=== PATIENT | female | born 1960 | race Caucasian/White ===

== ENCOUNTER 2018-03-12 05:37 | Inpatient (IN) | payer BC ==
--- NOTE | 2018-03-12 05:57 | ER Document Report ---
ED Medical Screen (RME) - General Chief Complaint: Shortness Of Breath Stated Complaint: DIFFICULTY BREATHING Time Seen by Provider: 03/12/18 05:48 Notes: 57-year-old female with medical history including esophageal cancer status post esophagectomy comes emergency department for chief complaint of shortness of breath. She states she was sleeping on her stomach, she vomited, and then she felt very short of breath and she was choking. She came to the emergency department immediately after. No history of COPD, CHF, denies chest pain, denies fever, denies abdominal pain, denies cardiac history. Not on chemotherapy, completed in May. TRAVEL OUTSIDE OF THE [place] IN LAST 30 DAYS: No - Related Data Allergies/Adverse Reactions: No Known Allergies Allergy (Unverified 03/12/18 05:41) Physical Exam - Respiratory Respiratory status: No respiratory distress - Speaking in full sentences, no tachypnea or labored breathing Breath sounds: No: Rales, Rhonchi, Stridor, Wheezing Course - Re-evaluation Re-evalutation: Patient tachycardic and hypoxic, episode of vomiting questionable for aspiration , however she is in no distress, oxygen is 94% on 2 L, she is alert and talkative. Workup pending.
[2018-03-12] MEDS ORDERED: IPRATROPIUM/ALBUTEROL 0.5-2.5 MG/3 ML AMPUL NEB ONE (06:27)
--- NOTE | 2018-03-12 06:32 | ER Document Report ---
ED Respiratory Problem - General Chief Complaint: Shortness Of Breath Stated Complaint: DIFFICULTY BREATHING Time Seen by Provider: 03/12/18 05:48 Notes: 57-year-old female patient emergency department chief complaint of shortness of breath. Patient is visiting from out of town. Status post esophageal cancer with surgery. Surgery was in July. Not on chemo. Not on radiation. Reportedly most of the cancerous area was removed. Here visiting her son who is a marine. Woke up this morning coughing. Possible aspiration. Has had pneumonia in the past. Had multiple chest tubes status post surgery and 1 of the chest tube sites developed abscess she was on antibiotics. Developed a fungal infection as well and has completed antifungal medications. Has a PowerPort in the right chest. Denies any chest pain at this time. Does have some mild shortness of breath at this time. Feels cold and clammy this morning. TRAVEL OUTSIDE OF THE [place] IN LAST 30 DAYS: No - HPI Patient complains to provider of: Short of breath Onset: This morning Duration: Better Initiating Event: Aspiration/Choking Severity: Moderate Context: Malignancy, Recent long distance trvl, Recent surgery Short of Breath: Moderate - Related Data Allergies/Adverse Reactions: No Known Allergies Allergy (Unverified 03/12/18 05:41) Past Medical History - General Information source: Patient - Social History Smoking Status: Smoker,Current Status Unk Frequency of alcohol use: None Drug Abuse: None Lives with: Spouse/Significant other Family History: Reviewed & Not Pertinent - Medical History Notes: Esophageal cancer Review of Systems - Review of Systems Notes: Constitutional: denies: Chills, Diaphoresis, Fever, Malaise, Weakness EENT: denies: Eye discharge, Blurred vision, Tearing, Double vision, Nose congestion, Nose discharge, Throat swelling, Mouth pain Cardiovascular: Complaining of shortness of breath, tachycardia, denies any chest pain Respiratory: Shortness of breath, cough, possible aspiration pneumonia Gastrointestinal: denies: Abdominal pain, Diarrhea,. Is complaining of nausea and vomiting Genitourinary: denies: Burning, Dysuria, Discharge, Frequency, Flank pain, Hematuria Musculoskeletal: denies: Joint pain, Joint swelling, Muscle pain, Muscle stiffness, back pain Hematologic/Lymphatic: denies: Anemia, Easy bleeding, Easy bruising, Blood clots. Does have a history of esophageal cancer status post esophagectomy Neurological/Psychological: denies: Confusion, Dementia, Depression, Loss of consciousness Skin: No lesions, no masses, no skin breakdown, no abscesses Physical Exam - Vital signs Vitals: Temp Pulse Resp BP Pulse Ox 97.8 F 114 H 16 115/67 87 L 03/12/18 05:42 03/12/18 05:42 03/12/18 05:42 03/12/18 05:42 03/12/18 05:42 Interpretation: Tachycardic - General General appearance: Appears well, Alert - HEENT Head: Normocephalic, Atraumatic Eyes: Normal Pupils: PERRL - Respiratory Respiratory status: Tachypnea Chest status: Nontender Breath sounds: Other - Coarse breath sounds bilaterally left greater than the right Chest palpation: Normal - Cardiovascular Rhythm: Tachycardia Heart sounds: Normal auscultation Murmur: No - Abdominal Inspection: Normal Distension: No distension Bowel sounds: Normal Tenderness: Nontender Organomegaly: No organomegaly - Back Back: Normal, Nontender - Extremities General upper extremity: Normal inspection, Nontender, Normal color, Normal ROM , Normal temperature General lower extremity: Normal inspection, Nontender, Normal color, Normal ROM , Normal temperature, Normal weight bearing. No: Sita's sign - Neurological Neuro grossly intact: Yes Cognition: Normal Orientation: AAOx4 Chace Coma Scale Eye Opening: Spontaneous [place] Coma Scale Verbal: Oriented Chace Coma Scale Motor: Obeys Commands [place] Coma Scale Total: 15 Speech: Normal Motor strength normal: LUE, RUE, LLE, RLE Sensory: Normal - Psychological Associated symptoms: Normal affect, Normal mood - Skin Skin Temperature: Warm Skin Moisture: Dry Skin Color: Normal Course - Re-evaluation Re-evalutation: 03/12/18 07:35 Chest x-ray suggests left lower lobe pneumonia. Will get CT scan at this time as well to rule out urinary embolism in this high-risk patient. Now is vomiting. Adding Zofran. 03/12/18 08:08 I did speak with the patient's daughter who is a nurse practitioner. Patient had esophagectomy in July. There was negative disease afterwards however patient developed an anastomotic leak in the chest developing a abscess was grew out multiple organisms. She was on antibiotic therapy for quite some time and also grew out fungal infection which was resistant to fluconazole and was on another antifungal medication. Most recent CT scan showed that she had some disease still in the left lower lobe in the right upper lobe however she was asymptomatic so the decision was made to not treat that at this time. Currently we will get the CT angios on her chest to rule out PE and to look for deeper into the chest. We will continue to reach out to the daughter who has a wealth of information as she is a nurse practitioner 03/12/18 09:[address] scan concerning for pneumonitis. IV fluids, antibiotics started. Consulted hospitalist. Will place in the IMCU at this time. Patient' s daughter is a nurse practitioner. Her phone number is [phone]. Patient' s oncologist is Dr. Lozano and that phone number is [phone] - Vital Signs Vital signs: Temp Pulse Resp BP Pulse Ox 97.6 F 114 H 28 H 101/56 L 93 03/12/18 08:13 03/12/18 05:42 03/12/18 09:07 03/12/18 09:07 03/12/18 09:07 - Laboratory Result Diagrams: 03/12/18 06:20 03/12/18 06:20 Laboratory results interpreted by me: 03/12/18 03/12/18 06:20 06:20 RBC 3.66 L Hct 35.0 L RDW 14.1 H Plt Count 514 H Seg Neutrophils % 79.2 H Glucose 144 H AST 45 H Creatine Kinase 20 L - EKG Interpretation by Me EKG shows normal: Sinus rhythm, [place], Intervals, QRS Complexes, ST-T Waves Rate: Tachycardia Critical Care Note - Critical Care Note Total time excluding time spent on procedures (mins): 45 Comments: Tachycardia, hypotension, consultation with specialists, coordination of care Discharge - Discharge Clinical Impression: SIRS (systemic inflammatory response syndrome) Left lower lobe pneumonia Qualifiers: Pneumonia type: aspiration pneumonia Aspiration pneumonia type: due to gastric secretions Qualified Code(s): J69.0 - Pneumonitis due to inhalation of food and vomit Condition: Fair Disposition: ADMITTED INPATIENT Admitting Provider: Hospitalist - [facility] Admitted: [facility]
[2018-03-12 06:48] LABS: ABSOLUTE LYMPHOCYTES (AUTO) 0.9 10^3/uL (0.5-4.7); ABSOLUTE MONOCYTES (AUTO) 0.3 10^3/uL (0.1-1.4); ABSOLUTE NEUT (AUTO) 4.9 10^3/uL (1.7-8.2); BASOPHILS % (AUTO) 0.8 % (0-2); EOSINOPHILS % (AUTO) 0.6 % (0-6); HEMOGLOBIN 12.2 g/dL (12.0-15.5); LYMPHOCYTES % (AUTO) 14.8 % (13-45); MEAN CORPUSCULAR HEMOGLOBIN 33.3 pg (27.0-33.4); MEAN CORPUSCULAR HGB CONC 34.9 g/dL (32.0-36.0); MEAN CORPUSCULAR VOLUME 96 fl (80-97); MONOCYTES % (AUTO) 4.6 % (3-13); PLATELET COUNT 514 10^3/uL (150-450); RED BLOOD COUNT 3.66 10^6/uL (3.72-5.28); RED CELL DISTRIBUTION WIDTH 14.1 % (11.5-14.0); SEGMENTED NEUTROPHILS % (AUTO) 79.2 % (42-78); TOTAL CELLS COUNTED % (AUTO) 100 %; WHITE BLOOD COUNT 6.3 10^3/uL (4.0-10.5)
[2018-03-12 06:50] LABS: ALANINE AMINOTRANSFERASE 28 U/L (9-52); ALBUMIN 3.6 g/dL (3.5-5.0); ALKALINE PHOSPHATASE 122 U/L (38-126); ANION GAP 13 (5-19); ASPARTATE AMINO TRANSFERASE 45 U/L (14-36); BILIRUBIN,DIRECT 0.4 mg/dL (0.0-0.4); BILIRUBIN,TOTAL 0.5 mg/dL (0.2-1.3); BLOOD UREA NITROGEN 14 mg/dL (7-20); CARBON DIOXIDE 28 mmol/L (22-30); CHLORIDE 103 mmol/L (98-107); CREATINE KINASE 20 U/L (30-135); GLUCOSE 144 mg/dL (75-110); SODIUM 144.4 mmol/L (137-145); TOTAL PROTEIN 7.9 g/dL (6.3-8.2)
[2018-03-12 07:01] LABS: CREATINE KINASE MB 0.48 ng/mL (<4.55)
[2018-03-12 07:03] LABS: TROPONIN I < 0.012 ng/mL
--- NOTE | 2018-03-12 07:03 | RADIOLOGY REPORT (SQ) ---
EXAM DESCRIPTION: XR CHEST 1 VIEW COMPLETED DATE/TME: 03/12/2018 05:52 CLINICAL HISTORY: 57 years Female, shortness of breath COMPARISON: None. NUMBER OF VIEWS/TECHNIQUE: 1/AP FINDINGS: Adequate lung volume, moderate patchy opacity of the left lower and mid lung field, normal cardiac silhouette, right jugular miniport catheter tip at the SVC, and intact bony thorax. IMPRESSION: Moderate left lower lobar pneumonia. In this patient with history of esophageal cancer, possibility of malignancy must also be considered. Recommend CR/CT surveillance including at 7-12 weeks following initiation of clinically warranted therapy.
[2018-03-12] MEDS ORDERED: ONDANSETRON HCL INJ/PF 4 MG/2 ML SDV IV ONE (07:22)
[2018-03-12] MEDS ORDERED: NORMAL SALINE 1000 ML 1,000 ML IV ONE ×3 (07:35→17:23)
[2018-03-12] MEDS ORDERED: PIPERACILLIN/TAZOBACTAM 3.375 GM VIAL IV ONE (07:36)
[2018-03-12 08:10] LABS: VENOUS BLOOD HCO3 28.3 mmol/L (20-32); VENOUS BLOOD PCO2 57.3 mmHg (35-63); VENOUS BLOOD PH 7.31 (7.30-7.42)
--- NOTE | 2018-03-12 09:08 | RADIOLOGY REPORT (SQ) ---
EXAM DESCRIPTION: CTA CHEST COMPLETED DATE/TIME: 03/12/2018 8:37 am REASON FOR STUDY: SOB, tachycardia, esoph CA, long travl COMPARISON: AP chest 03/12/2018 TECHNIQUE: CT scan of the chest performed using helical scanning technique with dynamic intravenous contrast injection. Images reviewed with lung, soft tissue and bone windows. Reconstructed coronal and sagittal MPR images reviewed. Additional 3 dimensional post-processing performed to develop Maximal Intensity Projection images ([place] P). All images stored on PACS. All CT scanners at this facility use dose modulation, iterative reconstruction, and/or weight based d osing when appropriate to reduce radiation dose to as low as reasonably achievable (ALARA). [facility]: Dose Right [facility]: CareDose [facility]: Dose Right [facility]: Teradose 4D [facility]: [email or web address] CONTRAST TYPE AND DOSE: contrast/concentration: Isovue 350.00 mg/ml; Total Contrast Delivered: 64.0 ml; Total Saline Delivered: 60.0 ml Contrast bolus optimized for the pulmonary arteries and diagnostic for the aorta. RENAL FUNCTION: Creatinine 0.61 RADIATION DOSE: CT Rad equipment meets quality standard of care and radiation dose reduction techniq ues were employed. CTDIvol: 13.2 - 14.3 mGy. DLP: 550 mGy-cm. . LIMITATIONS: None. FINDINGS: LUNGS AND PLEURA: Patchy airspace disease is seen throughout the left upper lobe and left lower lobe worrisome for aspiration pneumonia. No pleural effusions. No pneumothorax. No worrisome pulmonary nodules. AORTA AND GREAT VESSELS: No aneurysm. Contrast bolus not optimized for the aorta. HEART: No pericardial effusion. Moderate coronary artery calcification PULMONARY ARTERIES: No emboli visualized in the main pulmonary arteries or the segmental branches. HILAR AND MEDIASTINAL STRUCTURES: Patient is post esophagectomy and gastric pull-through. Anastomoti c monika are seen at about the level of the xochilt. There is an air-fluid level in the cervical eso phagus from reflux. HARDWARE: Right-sided permanent central line tip superior vena cava UPPER ABDOMEN: No significant findings. Limited exam. THYROID AND OTHER SOFT TISSUES: No masses. No adenopathy. BONES: No acute or significant finding. 3D MIPS: Confirm above findings. OTHER: No other significant finding. IMPRESSION: Esophagectomy with pull-through, air-fluid levels in the esophagus from reflux. Diffuse left-sided airspace disease worrisome for aspiration pneumonia/ pneumonitis No CT angio evidence of acute pulmonary emboli or thoracic aortic dissection COMMENT: Quality ID # [id number]: Final reports with documentation of one or more dose reduction techniques (e.g., Automated exposure control, adjustment of the mA and/or kV according to patient size, use of iterative reconstruction technique) TECHNICAL DOCUMENTATION: JOB ID: [id number] [employer]- All Rights Reserved Reading location - IP/workstation name: [email or web address]
[2018-03-12 09:58] LABS: APPEARANCE,URINE CLEAR; BILIRUBIN,URINE NEGATIVE (NEGATIVE); COLOR,URINE YELLOW; GLUCOSE, URINE NEGATIVE (NEGATIVE); KETONES,URINE TRACE mg/dL (NEGATIVE); LEUKOCYTE ESTERASE,URINE SMALL (NEGATIVE); NITRITE,URINE NEGATIVE (NEGATIVE); PROTEIN,URINE NEGATIVE (NEGATIVE); URINE SPECIFIC GRAVITY 1.055; UROBILINOGEN,URINE NEGATIVE mg/dL (<2.0)
--- NOTE | 2018-03-12 11:22 | PDOC H&P ---
History of Present Illness Admission Date/PCP: 03/12/18 10:16 Patient complains of: Shortness of breath History of Present Illness: JODY SIERRA is a 57 year old female visiting from [place] to see her son who is in the [facility]. She has history of esophageal CA status post esophagectomy in July. Most of the cancerous areas were apparently removed. She now presents with acute onset shortness of breath this morning. She has cough but dry, she feels cold and shaky, but no documented fever. Evaluation in the ED significant for CT of the chest that revealed no pulmonary embolism. However there is concern for aspiration pneumonia. She received a bolus of IV fluid. Patient referred and is being admitted to the hospitalist service. Lactic acid is returning 2.7. Past Medical History Past Medical History: Esophageal cancer status post esophagectomy, gastroesophageal reflux disease, chronic back pain, chronic pain syndrome Social History Lives with: Spouse/Significant other Smoking Status: Former Smoker Family History Family History: Reviewed & Not Pertinent Parental Family History Reviewed: Yes Children Family History Reviewed: Yes Sibling(s) Family History Reviewed.: Yes Medication/Allergy Home Medications: Bisacodyl [Dulcolax 10 mg Supp.rect] 10 mg GA HSP PRN 03/12/18 Cyanocobalamin (Vitamin B-12) [Nascobal] 1 each NS DAILY 03/12/18 Docusate Sodium [Colace 100 mg Capsule] 100 mg PO BID 03/12/18 Gabapentin [Neurontin 300 mg Capsule] 300 mg PO Q8 03/12/18 Magnesium Hydroxide [Milk of Magnesia 30 ml Udcup] 30 ml PO DAILYP PRN 03/12/18 Methadone HCl [Dolophine Hcl] 2.5 mg PO Q8HP PRN MDD 45 TABS FOR 30 DAYS Mirtazapine [Remeron 15 mg Tablet] 15 mg PO QHS 03/12/18 Omeprazole 40 mg PO BID 03/12/18 Oxycodone HCl [Oxy-Ir 5 mg Tablet] 5 mg PO Q8HP PRN 03/12/18 Sennosides [Natural Vegetable Laxative] 17.2 mg PO QHS 03/12/18 Allergies/Adverse Reactions: No Known Allergies Allergy (Unverified 03/12/18 05:41) Review of Systems Review of Systems: CONSTITUTIONAL : Fever, chills --as in HPI; unexpalined fatigue -- No EENT: Denies eye, ear, throat, or mouth pain or symptoms. Denies nasal or sinus congestion or discharge. Denies new throat, tongue, or mouth swelling or difficulty swallowing. CARDIOVASCULAR: Denies chest pain. No racing heart RESPIRATORY: As in HPI. GASTROINTESTINAL: Denies abdominal pain or distention. Denies nausea, vomiting , or diarrhea. No rectal bleeding. GENITOURINARY: Urinary symptoms -- no. MUSCULOSKELETAL: No acute weakness SKIN: Denies rash, lesions or sores. HEMATOLOGIC : Denies easy bruising or bleeding. LYMPHATIC: Denies swollen, enlarged glands. NEUROLOGICAL: New weakness, headaches, slured speach - No PSYCHIATRIC: Changes anxiety or stress, depression, suicidal ideation, or homicidal ideation -- No ALL OTHER SYSTEMS REVIEWED AND NEGATIVE. Physical Exam Vital Signs: Temp Pulse Resp BP Pulse Ox 97.6 F 114 H 28 H 101/56 L 93 03/12/18 08:13 03/12/18 05:42 03/12/18 09:07 03/12/18 09:07 03/12/18 09:07 Intake & Output 03/11/18 03/12/18 03/13/18 06:59 06:59 06:59 Intake Total 1000 Balance 1000 GENERAL: Well-developed, ill-appearing female, no acute distress HEENT: Normocephalic/atraumatic NECK supple, no JVD CARDIOVASCULAR: Tachycardic, normal S1-S2 LUNGS: Crackles bibasilarly, good air entry ABDOMEN: Soft, NT, NL bowel sounds EXTREMITIES: No edema, clubbing, cyanosis NEUROLOGICAL: Alert, oriented x 3, no acute weakness Results Laboratory Results: White blood cells 6.3, hemoglobin 12.2, hematocrit 35, platelets 514. Number Chem-7 except glucose 144. Lactic acid 2.7. Impressions: Chest X-Ray 03/12/18 05:52 IMPRESSION: Moderate left lower lobar pneumonia. In this patient with history of esophageal cancer, possibility of malignancy must also be considered. Recommend CR/CT surveillance including at 7-12 weeks following initiation of clinically warranted therapy. Chest/Abdomen CTA 03/12/18 06:55 IMPRESSION: Esophagectomy with pull-through, air-fluid levels in the esophagus from reflux. Diffuse left-sided airspace disease worrisome for aspiration pneumonia/ pneumonitis No CT angio evidence of acute pulmonary emboli or thoracic aortic dissection Assessment & Plan - Diagnosis (1) Sepsis Is this a current diagnosis for this admission?: Yes Plan: Likely secondary to pneumonia. Patient at presentation with RR 25, and pulmonary source of infection. She received a dose of IV fluid. Will treat with additional bolus of IV fluid and continue after at a rate of least 125 mL/ h. Consider pressors if hypotensive after adequate fluid resuscitation. Patient received a dose of Zosyn in the ED. Will continue Zosyn. We will also broaden antibiotics with addition of vancomycin for now. (2) Left lower lobe pneumonia Qualifiers: Pneumonia type: aspiration pneumonia Aspiration pneumonia type: due to gastric secretions Qualified Code(s): J69.0 - Pneumonitis due to inhalation of food and vomit Is this a current diagnosis for this admission?: Yes Plan: Management as in sepsis above. (3) H/O malignant neoplasm of esophagus Is this a current diagnosis for this admission?: Yes (4) Chronic back pain Is this a current diagnosis for this admission?: Yes Plan: Gentle with narcotics at this time given relative hypotension. Tylenol as needed for pain. Resume opiates when safe. (5) Chronic pain syndrome Is this a current diagnosis for this admission?: Yes Plan: As seen in #3 above. - Inpatient Certification Based on my medical assessment, after consideration of the patient's comorbidities, presenting symptoms, or acuity I expect that the services needed warrant INPATIENT care.: Yes I certify that my determination is in accordance with my understanding of Medicare's requirements for reasonable and necessary INPATIENT services [42 CFR 412.3e].: Yes Medical Necessity: Need Close Monitoring Due to Risk of Patient Decompensation, Need For IV Fluids, Need For Continuous Telemetry Monitoring, Need for IV Antibiotics
[2018-03-12] MEDS ORDERED: ENOXAPARIN SODIUM INJ 40 MG/0.4 ML DISP.SYRIN SUBCUT ONE (12:15)
--- NOTE | 2018-03-12 12:31 | EKG REPORT ---
SEVERITY:- ABNORMAL ECG - SINUS RHYTHM RIGHT ATRIAL ABNORMALITY LEFT ANTERIOR FASCICULAR BLOCK BORDERLINE PROLONGED QT INTERVAL : Confirmed by: Arcadio Page MD 12-Mar-2018 12:30:33
[2018-03-12] MEDS ORDERED: ACETAMINOPHEN 325 MG TABLET PO ONE (13:56)
[2018-03-12] MEDS ORDERED: NORMAL SALINE 1000 ML 1,000 ML IV PRN (13:57)
[2018-03-12] MEDS ORDERED: METHADONE HCL PO PRN (14:36)
[2018-03-12] MEDS ORDERED: MAGNESIUM HYDROXIDE SUSP 30 ML UDCUP PO PRN (14:36)
[2018-03-12] MEDS ORDERED: BISACODYL 10 MG SUPP.RECT PR PRN (14:36)
[2018-03-12] MEDS: PIPERACILLIN SODIUM/TAZOBACTAM 3.375 GM in NORMAL SALINE 100 ML IV SCH ×2 (18:47→23:59)
[2018-03-12] MEDS: LANSOPRAZOLE 30 MG TAB.RAP.DR PO SCH (18:48)
[2018-03-12] MEDS: DOCUSATE SODIUM 100 MG CAPSULE PO SCH (18:48)
[2018-03-12] MEDS ORDERED: VANCOMYCIN HCL 0 MG in DEXTROSE 5%-WATER 250 ML IV NR (20:15)
[2018-03-12] MEDS: NORMAL SALINE 1000 ML 1,000 ML IV PRN (21:30)
[2018-03-12] MEDS ORDERED: SENNOSIDES 17.2 MG PO SCH (22:00)
[2018-03-12] MEDS: GABAPENTIN 300 MG CAPSULE PO SCH (22:34)
[2018-03-12] MEDS: MIRTAZAPINE 15 MG TABLET PO SCH (22:34)
[2018-03-12] MEDS: VANCOMYCIN HCL 750 MG in DEXTROSE 5%-WATER 250 ML IV SCH (22:35)
[2018-03-12] MEDS: METHADONE HCL 10 MG TABLET PO PRN (23:58)
[2018-03-13 04:39] LABS: ABSOLUTE LYMPHOCYTES (AUTO) 1.1 10^3/uL (0.5-4.7); ABSOLUTE MONOCYTES (AUTO) 0.5 10^3/uL (0.1-1.4); ABSOLUTE NEUT (AUTO) 11.7 10^3/uL (1.7-8.2); EOSINOPHILS % (AUTO) 0.2 % (0-6); HEMATOCRIT 26.3 % (36.0-47.0); LYMPHOCYTES % (AUTO) 8.4 % (13-45); MEAN CORPUSCULAR HEMOGLOBIN 32.8 pg (27.0-33.4); MEAN CORPUSCULAR HGB CONC 34.3 g/dL (32.0-36.0); MEAN CORPUSCULAR VOLUME 96 fl (80-97); MONOCYTES % (AUTO) 3.7 % (3-13); PLATELET COUNT 358 10^3/uL (150-450); RED BLOOD COUNT 2.76 10^6/uL (3.72-5.28); RED CELL DISTRIBUTION WIDTH 14.2 % (11.5-14.0); SEGMENTED NEUTROPHILS % (AUTO) 87.7 % (42-78); TOTAL CELLS COUNTED % (AUTO) 100 %
[2018-03-13 04:53] LABS: WHITE BLOOD COUNT 13.4 10^3/uL (4.0-10.5)
[2018-03-13 04:56] LABS: ANION GAP 12 (5-19); BLOOD UREA NITROGEN 9 mg/dL (7-20); CALCIUM 7.7 mg/dL (8.4-10.2); CARBON DIOXIDE 23 mmol/L (22-30); CHLORIDE 107 mmol/L (98-107); GLUCOSE 88 mg/dL (75-110); POTASSIUM 3.5 mmol/L (3.6-5.0); SODIUM 141.8 mmol/L (137-145)
[2018-03-13] MEDS: PIPERACILLIN SODIUM/TAZOBACTAM 3.375 GM in NORMAL SALINE 100 ML IV SCH ×3 (06:05→17:01)
[2018-03-13] MEDS: GABAPENTIN 300 MG CAPSULE PO SCH ×3 (06:05→21:52)
[2018-03-13] MEDS: NORMAL SALINE 1000 ML 1,000 ML IV PRN ×3 (06:27→21:53)
[2018-03-13] MEDS: VANCOMYCIN HCL 750 MG in DEXTROSE 5%-WATER 250 ML IV SCH ×2 (09:24→21:52)
[2018-03-13] MEDS: DOCUSATE SODIUM 100 MG CAPSULE PO SCH ×2 (09:24→17:00)
[2018-03-13] MEDS: LANSOPRAZOLE 30 MG TAB.RAP.DR PO SCH ×2 (09:25→17:01)
[2018-03-13] MEDS: ENOXAPARIN SODIUM INJ 40 MG/0.4 ML DISP.SYRIN SUBCUT SCH (09:25)
[2018-03-13] MEDS: METHADONE HCL 10 MG TABLET PO PRN ×2 (09:46→21:51)
[2018-03-13] MEDS ORDERED: CYANOCOBALAMIN NS SCH (10:00)
--- NOTE | 2018-03-13 13:38 | PDOC PROGRESS REPORT ---
Subjective Progress Note for:: 03/13/18 Subjective:: She was admitted with pneumonia. She reports feeling better today. She is thought to have a left lower lobe pneumonia. Reason For Visit: SYSTEMIC INFLAMMATORY RESPONSE SYNDROME (SIRS) Physical Exam Vital Signs: Temp Pulse Resp BP Pulse Ox 98.5 F 76 12 79/43 L 98 03/13/18 12:15 03/13/18 12:15 03/13/18 12:15 03/13/18 12:15 03/13/18 12:15 Intake & Output 03/12/18 03/13/18 03/14/18 06:59 06:59 06:59 Intake Total 4615 450 Output Total 200 200 Balance 4415 250 Weight 60.9 kg General appearance: PRESENT: no acute distress, well-developed, well-nourished Head exam: PRESENT: atraumatic, normocephalic Eye exam: PRESENT: conjunctiva pink, EOMI, PERRLA. ABSENT: scleral icterus Ear exam: PRESENT: normal external ear exam Mouth exam: PRESENT: moist, tongue midline Neck exam: ABSENT: carotid bruit, JVD, lymphadenopathy, thyromegaly Respiratory exam: PRESENT: decreased breath sounds. ABSENT: rales, rhonchi, wheezes Cardiovascular exam: PRESENT: RRR. ABSENT: diastolic murmur, rubs, systolic murmur Pulses: PRESENT: normal dorsalis pedis pul Vascular exam: PRESENT: normal capillary refill GI/Abdominal exam: PRESENT: normal bowel sounds, soft, other - PEG tube. ABSENT : distended, guarding, mass, organolmegaly, rebound, tenderness Rectal exam: PRESENT: deferred Extremities exam: PRESENT: full ROM. ABSENT: calf tenderness, clubbing, pedal edema Neurological exam: PRESENT: alert, awake, oriented to person, oriented to place , oriented to time, oriented to situation, CN II-XII grossly intact. ABSENT: motor sensory deficit Psychiatric exam: PRESENT: appropriate affect, normal mood. ABSENT: homicidal ideation, suicidal ideation Skin exam: PRESENT: dry, intact, warm. ABSENT: cyanosis, rash Results Laboratory Results: 03/13/18 04:15 03/13/18 04:15 03/12/18 03/13/18 03/13/18 15:35 04:15 04:15 WBC 13.4 H D RBC 2.76 L Hgb 9.0 L D Hct 26.3 L MCV 96 MCH 32.8 MCHC 34.3 RDW 14.2 H Plt Count 358 Seg Neutrophils % 87.7 H Lymphocytes % 8.4 L Monocytes % 3.7 Eosinophils % 0.2 Basophils % 0.0 Absolute Neutrophils 11.7 H Absolute Lymphocytes 1.1 Absolute Monocytes 0.5 Absolute Eosinophils 0.0 Absolute Basophils 0.0 Sodium 141.8 Potassium 3.5 L Chloride 107 Carbon Dioxide 23 Anion Gap 12 BUN 9 Creatinine 0.64 Est GFR ( Amer) > 60 Est GFR (Non-Af Amer) > 60 Glucose 88 Lactic Acid 4.2 H Calcium 7.7 L 03/13/18 04:15 WBC RBC Hgb Hct MCV MCH MCHC RDW Plt Count Seg Neutrophils % Lymphocytes % Monocytes % Eosinophils % Basophils % Absolute Neutrophils Absolute Lymphocytes Absolute Monocytes Absolute Eosinophils Absolute Basophils Sodium Potassium Chloride Carbon Dioxide Anion Gap BUN Creatinine Est GFR ( Amer) Est GFR (Non-Af Amer) Glucose Lactic Acid 0.8 Calcium Impressions: Chest X-Ray 03/12/18 05:52 IMPRESSION: Moderate left lower lobar pneumonia. In this patient with history of esophageal cancer, possibility of malignancy must also be considered. Recommend CR/CT surveillance including at 7-12 weeks following initiation of clinically warranted therapy. Chest/Abdomen CTA 03/12/18 06:55 IMPRESSION: Esophagectomy with pull-through, air-fluid levels in the esophagus from reflux. Diffuse left-sided airspace disease worrisome for aspiration pneumonia/ pneumonitis No CT angio evidence of acute pulmonary emboli or thoracic aortic dissection Assessment & Plan - Time Time Spent with patient: 15-24 minutes Medications reviewed and adjusted accordingly: Yes Anticipated discharge: Home Within: within 72 hours - Inpatient Certification Based on my medical assessment, after consideration of the patient's comorbidities, presenting symptoms, or acuity I expect that the services needed warrant INPATIENT care.: Yes Medical Necessity: Need for IV Antibiotics, Risk of Complication if Not Cared For in Hospital - Plan Summary Plan Summary: Sepsis secondary to pneumonia. Is currently on antibiotics. She was tachypneic initially but this has resolved and she has remained afebrile. 2. Left lower lobe pneumonia possibly aspiration given patient's history of esophageal cancer 3. History of esophageal cancer patient has a PEG tube in place which she says is to be removed will be also 4. Chronic opioid use for back pain
[2018-03-13] MEDS: MIRTAZAPINE 15 MG TABLET PO SCH (21:52)
[2018-03-14] MEDS: PIPERACILLIN SODIUM/TAZOBACTAM 3.375 GM in NORMAL SALINE 100 ML IV SCH ×4 (03:47→18:33)
[2018-03-14 04:52] LABS: ABSOLUTE EOSINOPHILS # (AUTO) 0.1 10^3/uL (0.0-0.6); ABSOLUTE MONOCYTES (AUTO) 0.6 10^3/uL (0.1-1.4); ABSOLUTE NEUT (AUTO) 13.3 10^3/uL (1.7-8.2); BASOPHILS % (AUTO) 0.1 % (0-2); EOSINOPHILS % (AUTO) 0.5 % (0-6); HEMATOCRIT 29.3 % (36.0-47.0); LYMPHOCYTES % (AUTO) 6.5 % (13-45); MEAN CORPUSCULAR HEMOGLOBIN 32.8 pg (27.0-33.4); MEAN CORPUSCULAR HGB CONC 34.2 g/dL (32.0-36.0); MEAN CORPUSCULAR VOLUME 96 fl (80-97); MONOCYTES % (AUTO) 3.9 % (3-13); PLATELET COUNT 358 10^3/uL (150-450); RED BLOOD COUNT 3.05 10^6/uL (3.72-5.28); RED CELL DISTRIBUTION WIDTH 14.1 % (11.5-14.0); RETICULOCYTE COUNT (AUTO) 1.65 % (0.66-2.85); TOTAL CELLS COUNTED % (AUTO) 100 %; WHITE BLOOD COUNT 14.9 10^3/uL (4.0-10.5)
[2018-03-14 05:06] LABS: ANION GAP 10 (5-19); BLOOD UREA NITROGEN 6 mg/dL (7-20); CALCIUM 8.1 mg/dL (8.4-10.2); CARBON DIOXIDE 22 mmol/L (22-30); CHLORIDE 110 mmol/L (98-107); GLUCOSE 92 mg/dL (75-110); POTASSIUM 3.6 mmol/L (3.6-5.0); SODIUM 141.6 mmol/L (137-145)
[2018-03-14] MEDS: GABAPENTIN 300 MG CAPSULE PO SCH ×3 (06:47→21:21)
[2018-03-14 10:24] LABS: VANCOMYCIN,TROUGH 9.3 ug/mL (5.0-20.0)
[2018-03-14] MEDS: VANCOMYCIN HCL 750 MG in DEXTROSE 5%-WATER 250 ML IV SCH (11:25)
[2018-03-14] MEDS: ENOXAPARIN SODIUM INJ 40 MG/0.4 ML DISP.SYRIN SUBCUT SCH (11:26)
[2018-03-14] MEDS: DOCUSATE SODIUM 100 MG CAPSULE PO SCH ×2 (11:26→18:18)
[2018-03-14] MEDS: LANSOPRAZOLE 30 MG TAB.RAP.DR PO SCH ×2 (11:26→18:18)
--- NOTE | 2018-03-14 13:20 | PDOC PROGRESS REPORT ---
Subjective Progress Note for:: 03/14/18 Subjective:: She was admitted with pneumonia. She reports feeling better today. She is thought to have a left lower lobe pneumonia. No new complaints Reason For Visit: SYSTEMIC INFLAMMATORY RESPONSE SYNDROME (SIRS) Physical Exam Vital Signs: Temp Pulse Resp BP Pulse Ox 98.7 F 71 12 95/51 L 97 03/14/18 11:28 03/14/18 11:28 03/14/18 11:28 03/14/18 11:28 03/14/18 11:28 Intake & Output 03/13/18 03/14/18 03/15/18 06:59 06:59 06:59 Intake Total 4615 2848 1200 Output Total 200 200 Balance 4415 2648 1200 Weight 60.9 kg 63.7 kg General appearance: PRESENT: no acute distress, well-developed, well-nourished Head exam: PRESENT: atraumatic, normocephalic Eye exam: PRESENT: conjunctiva pink, EOMI, PERRLA. ABSENT: scleral icterus Ear exam: PRESENT: normal external ear exam Mouth exam: PRESENT: moist, tongue midline Neck exam: ABSENT: carotid bruit, JVD, lymphadenopathy, thyromegaly Respiratory exam: PRESENT: crackles. ABSENT: rales, rhonchi, wheezes Cardiovascular exam: PRESENT: RRR. ABSENT: diastolic murmur, rubs, systolic murmur Pulses: PRESENT: normal dorsalis pedis pul Vascular exam: PRESENT: normal capillary refill GI/Abdominal exam: PRESENT: normal bowel sounds, soft. ABSENT: distended, guarding, mass, organolmegaly, rebound, tenderness Rectal exam: PRESENT: deferred Extremities exam: PRESENT: full ROM. ABSENT: calf tenderness, clubbing, pedal edema Neurological exam: PRESENT: alert, awake, oriented to person, oriented to place , oriented to time, oriented to situation, CN II-XII grossly intact. ABSENT: motor sensory deficit Psychiatric exam: PRESENT: appropriate affect, normal mood. ABSENT: homicidal ideation, suicidal ideation Skin exam: PRESENT: dry, intact, warm. ABSENT: cyanosis, rash Results Laboratory Results: 03/14/18 04:19 03/14/18 09:40 03/14/18 03/14/18 03/14/18 04:19 04:19 09:40 WBC 14.9 H RBC 3.05 L Hgb 10.0 L Hct 29.3 L MCV 96 MCH 32.8 MCHC 34.2 RDW 14.1 H Plt Count 358 Seg Neutrophils % 89.0 H Lymphocytes % 6.5 L Monocytes % 3.9 Eosinophils % 0.5 Basophils % 0.1 Absolute Neutrophils 13.3 H Absolute Lymphocytes 1.0 Absolute Monocytes 0.6 Absolute Eosinophils 0.1 Absolute Basophils 0.0 Retic Count (auto) 1.65 Absolute Retic 0.050 Sodium 141.6 Potassium 3.6 Chloride 110 H Carbon Dioxide 22 Anion Gap 10 BUN 6 L Creatinine 0.57 0.55 Est GFR ( Amer) > 60 > 60 Est GFR (Non-Af Amer) > 60 > 60 Glucose 92 Calcium 8.1 L Iron 12.0 L TIBC 186 L % Saturation 6 Ferritin 286.00 H Vitamin B12 481.0 Folate 15.20 Impressions: Chest X-Ray 03/12/18 05:52 IMPRESSION: Moderate left lower lobar pneumonia. In this patient with history of esophageal cancer, possibility of malignancy must also be considered. Recommend CR/CT surveillance including at 7-12 weeks following initiation of clinically warranted therapy. Chest/Abdomen CTA 03/12/18 06:55 IMPRESSION: Esophagectomy with pull-through, air-fluid levels in the esophagus from reflux. Diffuse left-sided airspace disease worrisome for aspiration pneumonia/ pneumonitis No CT angio evidence of acute pulmonary emboli or thoracic aortic dissection Assessment & Plan - Diagnosis (1) Anemia Qualifiers: Anemia type: unspecified type Qualified Code(s): D64.9 - Anemia, unspecified Is this a current diagnosis for this admission?: Yes - Time Time Spent with patient: 15-24 minutes Smoking Cessation Education: 3 to 10 minutes Medications reviewed and adjusted accordingly: Yes Anticipated discharge: Home Within: within 24 hours, within 48 hours - Inpatient Certification Based on my medical assessment, after consideration of the patient's comorbidities, presenting symptoms, or acuity I expect that the services needed warrant INPATIENT care.: Yes - Plan Summary Plan Summary: 1. Precipitous drop in hemoglobin likely is secondary to hemodilution. Iron store of 12. Will give IV Iron 2. Left lower lobe pneumonia possibly aspiration given patient's history of esophageal cancer 3. History of esophageal cancer patient has a PEG tube in place which she says is to be removed will be also 4. Chronic opioid use for back pain 5.Sepsis secondary to pneumonia. Is currently on antibiotics. She was tachypneic initially but this has resolved and she has remained afebrile. Still has leukocytosis but she is clinically improved 6. Plan is for dc home in am if remain stable
[2018-03-14] MEDS ORDERED: IRON SUCROSE COMPLEX INJ/PF 100 MG/5 ML SDV IV ONE (14:00)
[2018-03-14] MEDS: METHADONE HCL 10 MG TABLET PO PRN (18:34)
[2018-03-14] MEDS: MIRTAZAPINE 15 MG TABLET PO SCH (21:21)
[2018-03-14] MEDS ORDERED: VANCOMYCIN HCL 1,250 MG in DEXTROSE 5%-WATER 250 ML IV SCH (22:00)
[2018-03-15] MEDS: PIPERACILLIN SODIUM/TAZOBACTAM 3.375 GM in NORMAL SALINE 100 ML IV SCH ×3 (01:30→11:35)
[2018-03-15 04:56] LABS: ABSOLUTE EOSINOPHILS # (AUTO) 0.3 10^3/uL (0.0-0.6); ABSOLUTE LYMPHOCYTES (AUTO) 0.9 10^3/uL (0.5-4.7); ABSOLUTE MONOCYTES (AUTO) 0.6 10^3/uL (0.1-1.4); ABSOLUTE NEUT (AUTO) 9.3 10^3/uL (1.7-8.2); BASOPHILS % (AUTO) 0.1 % (0-2); EOSINOPHILS % (AUTO) 2.3 % (0-6); HEMOGLOBIN 9.6 g/dL (12.0-15.5); MEAN CORPUSCULAR HEMOGLOBIN 32.4 pg (27.0-33.4); MEAN CORPUSCULAR HGB CONC 34.2 g/dL (32.0-36.0); MEAN CORPUSCULAR VOLUME 95 fl (80-97); MONOCYTES % (AUTO) 5.7 % (3-13); PLATELET COUNT 300 10^3/uL (150-450); RED BLOOD COUNT 2.96 10^6/uL (3.72-5.28); SEGMENTED NEUTROPHILS % (AUTO) 83.9 % (42-78); TOTAL CELLS COUNTED % (AUTO) 100 %
[2018-03-15] MEDS: METHADONE HCL 10 MG TABLET PO PRN (06:25)
[2018-03-15] MEDS: GABAPENTIN 300 MG CAPSULE PO SCH (06:26)
[2018-03-15] MEDS ORDERED: LANSOPRAZOLE 30 MG TAB.RAP.DR PO SCH (08:00)
[2018-03-15] MEDS: DOCUSATE SODIUM 100 MG CAPSULE PO SCH (11:35)
[2018-03-15] MEDS: ENOXAPARIN SODIUM INJ 40 MG/0.4 ML DISP.SYRIN SUBCUT SCH (11:35)
--- NOTE | 2018-03-15 11:58 | PDOC DISCHARGE SUMMARY ---
General - Admit/Disc Date/PCP Admission Date/Primary Care Provider: 03/12/18 10:16 Discharge Date: 03/15/18 - Discharge Diagnosis (1) Anemia Is this a current diagnosis for this admission?: Yes (2) Chronic pain syndrome Is this a current diagnosis for this admission?: Yes (3) H/O malignant neoplasm of esophagus Is this a current diagnosis for this admission?: Yes (4) Left lower lobe pneumonia Is this a current diagnosis for this admission?: Yes (5) Acute respiratory failure with hypoxemia Is this a current diagnosis for this admission?: Yes (6) Sepsis Is this a current diagnosis for this admission?: Yes Summary: Hypotension, hypoxemia, tachypnea and Pneumonia - Additional Information Resuscitation Status: Full Code Discharge Diet: As Tolerated Discharge Activity: Activity As Tolerated Prescriptions: Amox Tr/Potassium Clavulanate [Augmentin 400-57 mg/5 mL Suspension] 10 ml PO TID #1 bottle Home Medications: Bisacodyl [Dulcolax 10 mg Supp.rect] 10 mg MT HSP PRN 03/12/18 Cyanocobalamin (Vitamin B-12) [Nascobal] 1 each NS DAILY 03/12/18 Docusate Sodium [Colace 100 mg Capsule] 100 mg PO BID 03/12/18 Gabapentin [Neurontin 300 mg Capsule] 300 mg PO Q8 03/12/18 Magnesium Hydroxide [Milk of Magnesia 30 ml Udcup] 30 ml PO DAILYP PRN 03/12/18 Methadone HCl [Dolophine HCl] 2.5 mg PO Q8HP PRN MDD 45 TABS FOR 30 DAYS Mirtazapine [Remeron 15 mg Tablet] 15 mg PO QHS 03/12/18 Omeprazole 40 mg PO BID 03/12/18 Oxycodone HCl [Oxy-Ir 5 mg Tablet] 5 mg PO Q8HP PRN 03/12/18 Sennosides [Natural Vegetable Laxative] 17.2 mg PO QHS 03/12/18 Amox Tr/Potassium Clavulanate [Augmentin 400-57 mg/5 mL Suspension] 10 ml PO TID #1 bottle 03/15/18 History of Present Illness Patient complains of: Difficulty breathing and shortness of breath History of Present Illness: JODY SIERRA is a 57 year old female Was admitted with difficulty breathing and shortness of breath. She was thought to be septic. She was initially hypoxemic. She was subsequently found to have a left lower lobe pneumonia. She was started on intravenous antibiotics and patient actually responded pretty well to this regimen. Initial oxygen was 87% and by the time of discharge she was off oxygen. Patient has been hemodynamically stable remained afebrile throughout her hospital stay. Her white count did bump up slightly but patient has improved clinically with no evidence of worsening infection. She was found to have iron deficiency anemia and so received iron intravenously. She is to follow-up with her primary care physician as patient has a history of esophageal cancer for further evaluation and workup. Physical Exam Vital Signs: Temp Pulse Resp BP Pulse Ox 99.0 F 84 20 116/59 L 92 03/15/18 07:31 03/15/18 07:31 03/15/18 07:31 03/15/18 07:31 03/15/18 07:31 Intake & Output 03/14/18 03/15/18 03/16/18 06:59 06:59 06:59 Intake Total 2848 2118 100 Output Total 200 Balance 2648 2118 100 Weight 63.7 kg 51.9 kg General appearance: PRESENT: no acute distress, well-developed, well-nourished Head exam: PRESENT: atraumatic, normocephalic Eye exam: PRESENT: conjunctiva pink, EOMI, PERRLA. ABSENT: scleral icterus Ear exam: PRESENT: normal external ear exam Mouth exam: PRESENT: moist, tongue midline Neck exam: ABSENT: carotid bruit, JVD, lymphadenopathy, thyromegaly Respiratory exam: PRESENT: clear to auscultation raymundo. ABSENT: rales, rhonchi, wheezes Cardiovascular exam: PRESENT: RRR, other - port on Left chest wall. ABSENT: diastolic murmur, rubs, systolic murmur Pulses: PRESENT: normal dorsalis pedis pul Vascular exam: PRESENT: normal capillary refill GI/Abdominal exam: PRESENT: normal bowel sounds, soft, other - PEG Tube. ABSENT : distended, guarding, mass, organolmegaly, rebound, tenderness Rectal exam: PRESENT: deferred Extremities exam: PRESENT: full ROM. ABSENT: calf tenderness, clubbing, pedal edema Neurological exam: PRESENT: alert, awake, oriented to person, oriented to place , oriented to time, oriented to situation, CN II-XII grossly intact. ABSENT: motor sensory deficit Psychiatric exam: PRESENT: appropriate affect, normal mood. ABSENT: homicidal ideation, suicidal ideation Skin exam: PRESENT: dry, intact, warm. ABSENT: cyanosis, rash Results Laboratory Results: 03/15/18 04:32 03/14/18 09:40 03/15/18 04:32 WBC 11.0 H RBC 2.96 L Hgb 9.6 L Hct 28.0 L MCV 95 MCH 32.4 MCHC 34.2 RDW 14.0 Plt Count 300 Seg Neutrophils % 83.9 H Lymphocytes % 8.0 L Monocytes % 5.7 Eosinophils % 2.3 Basophils % 0.1 Absolute Neutrophils 9.3 H Absolute Lymphocytes 0.9 Absolute Monocytes 0.6 Absolute Eosinophils 0.3 Absolute Basophils 0.0 Impressions: Chest X-Ray 03/12/18 05:52 IMPRESSION: Moderate left lower lobar pneumonia. In this patient with history of esophageal cancer, possibility of malignancy must also be considered. Recommend CR/CT surveillance including at 7-12 weeks following initiation of clinically warranted therapy. Chest/Abdomen CTA 03/12/18 06:55 IMPRESSION: Esophagectomy with pull-through, air-fluid levels in the esophagus from reflux. Diffuse left-sided airspace disease worrisome for aspiration pneumonia/ pneumonitis No CT angio evidence of acute pulmonary emboli or thoracic aortic dissection Qualifiers - * PATIENT BEING DISCHARGED WITH ANY OF THE FOLLOWING DIAGNOSIS: No
[2018-03-15 13:23] VITALS: BP 108/59
[2018-03-15] MEDS ORDERED: SENNOSIDES/DOCUSATE 8.6-50 MG 1 EACH TABLET PO SCH (22:00)
== END 2018-03-15 13:35 | disposition home or self-care (01) | DRG 871 ==
LOC: ER 05:37 → EH 10:16 → 3W 19:32
PROVIDERS: ADMIT Internal Medicine; ATTEND Internal Medicine
DX: A41.9 Sepsis, unspecified organism (principal); J69.0 Pneumonitis due to inhalation of food and vomit; J96.01 Acute respiratory failure with hypoxia; C15.9 Malignant neoplasm of esophagus, unspecified; D50.9 Iron deficiency anemia, unspecified; K21.9 Gastro-esophageal reflux disease without esophagitis; G89.4 Chronic pain syndrome; M54.9 Dorsalgia, unspecified; Z90.49 Acquired absence of other specified parts of digestive tract; Z79.891 Long term (current) use of opiate analgesic
CPT/HCPCS: 36415; 36591; 71045; 71275; 80048; 80053; 80202; 81001; 82550; 82553; 82565; 82607; 82728; 82746; 82803; 83540; 83550; 83605; 84484; 85025; 85045; 87040; 93005; 93010; 94640; 96365; 96375; 99291; J1650; J1756; J2405; J2543; J3370; J7030; J7060; J7620